=== PATIENT | male | born 2005 | race Caucasian/White ===

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

== ENCOUNTER 2025-05-08 16:18 | Outpatient (CLI) | payer SELFPAY ==
[2025-05-08 17:14] LABS: Cannabinoid Screen Urine Positive (Negative)
--- OUTSIDE RECORDS SUMMARY | 2025-05-08 17:17 | XMS_ITS ---
Author Name [facility] Organization Unknown Encounters Encounter Type Encounter Reason Primary Diagnosis Location Date Ambulatory Drivers Form [facility] 01/26/2025 Care Team Organization Name Specialty Phone Email Start Date End Da te [facility] 2024
== END 2025-05-08 16:19 | disposition home or self-care (01) ==
LOC: ANHLAB 16:20
PROVIDERS: PCP Family Medicine; Visit Provider Family Medicine
DX: F19.11 Other psychoactive substance abuse, in remission (principal)
CPT/HCPCS: 80307